=== PATIENT | female | born 1985 | race Caucasian/White ===

== ENCOUNTER → 2016-04-02 | Outpatient (CLI) | payer BC ==
--- NOTE | 2016-04-02 16:19 | XR ---
EXAMINATION TYPE: XR KUB DATE OF EXAM: 04/02/2016 4:01 PM COMPARISON: NONE HISTORY: Pain FINDINGS: The osseous structures are intact. The bowel gas pattern is nonspecific. Postsurgical change in the right upper quadrant. Retained fecal debris throughout the colon. Calcifications in the pelvis are no nspecific. Slightly irregular calculus within the right hemipelvis could potentially be within the right ureter measuring 3 mm. Arthropathy of the hip joints. IMPRESSION: 1. Nonspecific abdomen. Extensive retained fecal debris. 2. Possible 3 mm distal right ureteral calculus.
== END | disposition home or self-care (01) ==
LOC: RADXRMAIN 15:49
PROVIDERS: ATTEND Physician Assistant
DX: N20.1 Calculus of ureter (principal); R19.5 Other fecal abnormalities
CPT/HCPCS: 74000

== ENCOUNTER → 2019-05-15 | Outpatient (CLI) | payer BC ==
[2019-05-15 17:18] LABS: Basophils # (A) 0.1 k/uL (0-0.2); Basophils % (A) 1 %; Eosinophils # (A) 0.5 k/uL (0-0.7); Eosinophils % (A) 6 %; HCT 41.5 % (34.0-46.0); HGB 13.7 gm/dL (11.4-16.0); Lymphocytes # (A) 3.4 k/uL (1.0-4.8); Lymphocytes % (A) 36 %; MCH 31.3 pg (25.0-35.0); MCHC 32.9 g/dL (31.0-37.0); MCV 95.1 fL (80.0-100.0); Mean Platelet Volume 7.5; Monocytes # (A) 0.7 k/uL (0-1.0); Monocytes % (A) 7 %; Neutrophils # (A) 4.6 k/uL (1.3-7.7); Neutrophils % (A) 48 %; Platelet Count 326 k/uL (150-450); RBC 4.37 m/uL (3.80-5.40); RDW 12.4 % (11.5-15.5); WBC 9.5 k/uL (3.8-10.6)
[2019-05-15 23:42] LABS: African American GFR (CKD) 130.1 (60.0-200.0); Albumin 4.7 g/dL (3.80-4.90); Albumin/Globulin Ratio 2.35 (1.60-3.17); Anion Gap 5.9 mmol/L (4.00-12.00); BUN/Creat Ratio 12.86 Ratio (12.00-20.00); Calcium 10.1 mg/dL (8.7-10.3); Carbon Dioxide 30.1 mmol/L (21.6-31.8); Non-African American GFR(CKD) 112.3 (60.0-200.0); Potassium 3.9 mmol/L (3.5-5.5); Total Bilirubin 1.5 mg/dL (0.3-1.2); Total Protein 6.7 g/dL (6.2-8.2)
== END | disposition home or self-care (01) ==
LOC: LABWHC1 15:44
PROVIDERS: ATTEND Nurse Practitioner Family
DX: D72.829 Elevated white blood cell count, unspecified (principal); E83.52 Hypercalcemia
CPT/HCPCS: 36415; 80053; 85025

== ENCOUNTER → 2019-05-22 | Outpatient (CLI) | payer BC ==
--- NOTE | 2019-05-22 16:53 | US ---
EXAMINATION TYPE: US abdomen complete DATE OF EXAM: 05/22/2019 COMPARISON: NONE CLINICAL HISTORY: R74.8 Abnormal levels of other serum enzymes. EXAM MEASUREMENTS: Liver Length: Normal Gallbladder Wall: Surgically absent CBD: 0.6 cm Spleen: 8.2 cm Right Kidney: 9.9 x 3.2 x 4.5 cm Left Kidney: 9.0 x 4.6 x 4.3 cm Pancreas: wnl Liver: wnl Gallbladder: Surgically absent CBD: wnl Spleen: granulomas noted Right Kidney: No hydronephrosis or masses seen Left Kidney: No hydronephrosis or masses seen Upper IVC: wnl Abd Aorta: wnl IMPRESSION: Cholecystectomy. No dilated ducts. No renal mass or obstruction. No ascites.
--- NOTE | 2019-05-23 07:12 | US ---
EXAMINATION TYPE: US thyroid st tissue head/neck DATE OF EXAM: 05/22/2019 COMPARISON: US 2014 CLINICAL HISTORY: E04.1 SINGLE THYROID NODULE. GLAND SIZE: Right Lobe: 5.6 x 1.7 x 2.5 cm Overall Parenchyma: homogenous Left Lobe: 4.6 x 1.4 x 2.2 cm Overall Parenchyma: homogeneous Isthmus Thickness: 0.4 cm NODULES RIGHT: # of nodules measured on right: 1 1. 0.4 X 0.4 x 0.4 cm isoechoic solid nodule at the lower pole with well-defined margins; . This n odule is wider than tall and shows no intranodular vascularity. Prior size: not seen on prior There are a couple subcentimeter cystic areas measuring 3 mm each. LEFT: # of nodules measured on left: 0 ISTHMUS: # of nodules measured in the isthmus: 0 Bilateral neck scanned, no evidence of lymphadenopathy. IMPRESSION: Subcentimeter right thyroid nodules all measuring 4 mm or less are not seen on the prior examination. These are too small for fine-needle aspiration at this time. Follow-up ultrasound could be performed in 12 months to determine stability.
== END | disposition home or self-care (01) ==
LOC: RADUSWWP 15:22
PROVIDERS: ATTEND Family Medicine
DX: R74.8 Abnormal levels of other serum enzymes (principal); E04.1 Nontoxic single thyroid nodule; Z90.49 Acquired absence of other specified parts of digestive tract
CPT/HCPCS: 76536; 76700

== ENCOUNTER 2020-09-27 01:35 | Emergency (ER) | payer BC ==
[2020-09-27 01:40] VITALS: BP 124/83; PULSE 91; RESP 22; TEMP 97.6
[2020-09-27] MEDS ORDERED: HYDROmorphone 0.5 MG/0.5 ML SYRINGE IM STA ×2 (01:51→02:56)
--- NOTE | 2020-09-27 02:13 | XR ---
EXAMINATION TYPE: XR foot complete LT DATE OF EXAM: 09/27/2020 COMPARISON: 3 views HISTORY: Fall. Pain. Metatarsals are intact. I see no fracture nor dislocation. Toes are intact. IMPRESSION: Negative left foot exam. No fracture seen.
--- NOTE | 2020-09-27 02:16 | XR ---
EXAMINATION TYPE: XR ankle complete LT DATE OF EXAM: 09/27/2020 COMPARISON: NONE HISTORY: Pain TECHNIQUE: 3 views FINDINGS: There is nondisplaced oblique fracture distal fifth fibula. Ankle mortise is anatomic. Ther e is lateral soft tissue swelling. Joint spaces are normal. IMPRESSION: Acute oblique fracture distal fibula. No significant displacement.
--- NOTE | 2020-09-27 02:28 | ED ---
Lower Extremity Injury HPI - General Chief Complaint: Extremity Injury, Lower Stated Complaint: Left ankle injury Time Seen by Provider: 09/27/20 01:40 Source: patient Mode of arrival: wheelchair Limitations: no limitations - History of Present Illness Initial Comments: 35-year-old female presented emergency Department the chief complaint of ankle pain. Patient reports she was walking out to the bathroom, slipped and injured her left ankle. She reports falling on her ankle but denies any associated ecchymosis or erythema. Reports pain is exacerbated with any movement and alleviated at rest. She denies taking medications medication to alleviate the symptoms. Denies any paresthesias to the leg. Denies previous injuries to the region. - Related Data Home Medications Medication Instructions Recorded Confirmed ALPRAZolam [Xanax] 0.25 mg PO DAILY PRN 07/23/15 07/23/15 Albuterol Inhaler (Mhu) [Ventolin 2 puff INHALATION RT-Q6H PRN 07/23/15 07/23/15 Hfa Inhaler] Beclomethasone Dipropionate [Qvar 2 puff INHALATION RT-BID 07/23/15 07/23/15 80 mcg/puff] Clindamycin HCl 300 mg PO Q6H 07/23/15 07/23/15 Cyclobenzaprine [Flexeril] 10 mg PO TID PRN 07/23/15 07/23/15 Dextroamphetamine/Amphetamine 20 mg PO TID 07/23/15 07/23/15 [Adderall] Ergocalciferol [Vitamin D2] 50,000 unit PO Q48H 07/23/15 07/23/15 Ibuprofen [Motrin] 600 mg PO Q8HR PRN 07/23/15 07/23/15 traMADol HCL [Ultram] 50 mg PO Q6HR PRN 07/23/15 07/23/15 Allergies Allergy/AdvReac Type Severity Reaction Status Date / Time No Known Allergies Allergy Verified 09/27/20 01:39 Review of Systems ROS Statement: Those systems with pertinent positive or pertinent negative responses have been documented in the HPI. ROS Other: All systems not noted in ROS Statement are negative. Past Medical History Past Medical History: Asthma, Renal Disease Additional Past Medical History / Comment(s): chronic back and R shoulder pain, lactose intolerant, nephrolithiasis, R sided goiter. History of Any Multi-Drug Resistant Organisms: None Reported Past Surgical History: Adenoidectomy, Breast Surgery, Section, Cholecystectomy, Ear Surgery, Hysterectomy, Tonsillectomy, Tubal Ligation, Uterine Ablation Additional Past Surgical History / Comment(s): cyst removal from L eye, bilat eral myringotomy, multiple sx on a tailbone cyst, D&C, hysteroscopy, L breast cystectomy. Past Anesthesia/Blood Transfusion Reactions: No Reported Reaction Past Psychological History: ADD/ADHD Smoking Status: Current every day smoker Past Alcohol Use History: Occasional Past Drug Use History: None Reported - Past Family History Father Family Medical History: Hyperlipidemia, Hypertension Mother Additional Family Medical History / Comment(s): Goiter General Exam Limitations: no limitations General appearance: alert, in no apparent distress Head exam: Present: atraumatic, normocephalic, normal inspection Eye exam: Present: normal appearance, PERRL, EOMI Pupils: Present: normal accommodation ENT exam: Present: normal exam, normal oropharynx, mucous membranes moist Neck exam: Present: normal inspection, full ROM. Absent: tenderness Respiratory exam: Present: normal lung sounds bilaterally. Absent: respiratory distress Cardiovascular Exam: Present: regular rate, normal rhythm, normal heart sounds. Absent: systolic murmur Extremities exam: Present: normal inspection, full ROM, tenderness (Bilateral malleoli tenderness. No tenderness along the proximal tibia-fibula), normal capillary refill, joint swelling (Ankle), other (Sensation intact in both legs. Palpable DP and PT bilaterally). Absent: pedal edema Back exam: Present: normal inspection, full ROM. Absent: tenderness, CVA tenderness (R), CVA tenderness (L) Neurological exam: Present: alert, oriented X3 Psychiatric exam: Present: normal affect, normal mood Skin exam: Present: warm, dry, intact, normal color Course Vital Signs 09/27/20 01:37 Temperature 97.6 F Pulse Rate 91 Respiratory 22 Rate Blood Pressure 124/83 O2 Sat by Pulse 99 Oximetry Procedures - Orthopedic Splinting/Casting Injury #1 Side: left Lower Extremity Injury Location: ankle Lower Extremity Immobilizer: posterior splint, stirrup splint, Alin wrap, synthetic pre-padded splint Medical Decision Making - Medical Decision Making 35-year-old female presents to emergency Department with chief complaint of left ankle pain. On physical examination, she is neurovascularly intact but she has swelling on the left ankle. X-ray shows a distal fibular fracture. Patient was given Dilaudid for pain with some improvement of symptoms. She will be discharged with Tylenol 3 starter pack. I will apply posterior splint with ankle stirrup. Return parameters were thoroughly discussed patient is an attending ago. Case discussed with physician Disposition Clinical Impression: Fracture of distal end of fibula, Ankle fracture Disposition: HOME SELF-CARE Condition: Stable Instructions (If sedation given, give patient instructions): Ankle Fracture (DC) Additional Instructions: Follow with commercial collections specialist. Return to emergency department if symptoms worsen. Is patient prescribed a controlled substance at d/c from ED?: No Referrals: Austyn Prieto DO [Primary Care Provider] - 1-2 days Martha Steel DO [Doctor of Osteopathic Medicine] - 1-2 days Time of Disposition: 02:27
[2020-09-27] MEDS ORDERED: ACET/COD 300 MG/30 MG STARTER PACK 6 TAB BTL PO STA (02:45)
== END 2020-09-27 02:55 | disposition home or self-care (01) ==
LOC: EC 01:35
DX: S82.832A Other fracture of upper and lower end of left fibula, initial encounter for closed fracture (principal); S82.892A Other fracture of left lower leg, initial encounter for closed fracture; J45.909 Unspecified asthma, uncomplicated; F17.200 Nicotine dependence, unspecified, uncomplicated; Z79.51 Long term (current) use of inhaled steroids; Z79.899 Other long term (current) drug therapy; Z79.1 Long term (current) use of non-steroidal anti-inflammatories (NSAID); Z82.49 Family history of ischemic heart disease and other diseases of the circulatory system; W01.0XXA Fall on same level from slipping, tripping and stumbling without subsequent striking against object, initial encounter
CPT/HCPCS: 73610; 73630; 29515; 96372 ×2; 99284; J1170

== ENCOUNTER → 2020-10-22 | Outpatient (CLI) | payer BC ==
--- NOTE | 2020-10-23 10:55 | XR ---
EXAMINATION TYPE: XR tibia fibula LT DATE OF EXAM: 10/22/2020 COMPARISON: NONE HISTORY: Pain TECHNIQUE: Two views are submitted. FINDINGS: There is a displaced oblique fracture through the distal fibula. Findings also suspicious for subtle cortical step-off and posterior tibial fracture. Bone island within the distal tibia. IMPRESSION: 1. Acute oblique fracture through the distal fibula. 2. Findings also suspicious for subtle cortical step-off and posterior tibial fracture
== END | disposition home or self-care (01) ==
LOC: RADXRMAIN 14:49
PROVIDERS: ATTEND Nurse Practitioner Family
DX: S82.832A Other fracture of upper and lower end of left fibula, initial encounter for closed fracture (principal); X58.XXXA Exposure to other specified factors, initial encounter

== ENCOUNTER → 2021-02-25 | Outpatient (CLI) | payer BC ==
--- NOTE | 2021-02-25 19:36 | US ---
EXAMINATION TYPE: US thyroid st tissue head/neck DATE OF EXAM: 02/25/2021 COMPARISON: 05/22/2019 CLINICAL HISTORY: 35-year-old female E04.1 SINGLE THYROID NODULE. TECHNIQUE: Multiple sonographic images of the thyroid gland are obtained. FINDINGS: GLAND SIZE: Right Lobe: 5.5x2.6x2.1 cm Overall Parenchyma: homogenous Left Lobe: 4.5x2.4x1.7 cm Overall Parenchyma: homogeneous Isthmus Thickness: 0.5 cm NODULES RIGHT: # of nodules measured on right: 1 1. 0.4 X 0.4 x 0.4 cm, lower mid, solid or almost completely solid, hypoechoic nodule, which is wid er than tall, with smooth margins, without echogenic foci. Prior size: 0.4 x 0.4 x 0.4 cm 2. One small colloid cyst seen inf. LEFT: # of nodules measured on left: 0 ISTHMUS: # of nodules measured in the isthmus: 0 Bilateral neck scanned, no evidence of lymphadenopathy. IMPRESSION: 1. The right lobe of the thyroid gland is mildly enlarged. 2. There is a solitary tiny 4 mm solid nodule at the mid to lower right thyroid lobe which is unchang ed.
== END | disposition home or self-care (01) ==
LOC: RADUSWWP 14:55
PROVIDERS: ATTEND Family Medicine
DX: E04.1 Nontoxic single thyroid nodule (principal)
CPT/HCPCS: 76536

== ENCOUNTER → 2021-12-14 | Outpatient (CLI) | payer BC ==
--- NOTE | 2021-12-14 17:06 | US ---
EXAMINATION TYPE: US thyroid st tissue head/neck DATE OF EXAM: 12/14/2021 COMPARISON: CLINICAL HISTORY: E04.1 nontoxic single thyroid nodule. Follow up thyroid nodule. Patient states she feels a palpable superior to thyroid in right neck. GLAND SIZE: Right Lobe: 6.0 x 2.4 x 2.3 cm Overall Parenchyma: homogenous Left Lobe: 4.5 x 2.1 x 1.4 cm Overall Parenchyma: homogeneous Isthmus Thickness: 0.5 cm NODULES RIGHT: # of nodules measured on right: 1 1. 0.5 X 0.4 x 0.4 cm, lower mid, solid or almost completely solid, hypoechoic nodule, which is wid er than tall, with smooth margins, without echogenic foci. Prior size: 0.4 x 0.4 x 0.4 cm LEFT: # of nodules measured on left: 0 ISTHMUS: # of nodules measured in the isthmus: 0 Bilateral neck scanned, no evidence of lymphadenopathy. Area of concern scanned in right neck. Submandibular gland seen. Contralateral images taken. IMPRESSION: Previously identified thyroid nodule shows a stable appearance, follow-up is recommended in one year. The site of palpable abnormality does not show a discrete mass. 2017 ACR TI-RADS LEVEL: TR 4 *Highest TI-RADS level nodule reported
== END | disposition home or self-care (01) ==
LOC: RADUSWWP 16:12
PROVIDERS: ATTEND Family Medicine
DX: E04.1 Nontoxic single thyroid nodule (principal)
CPT/HCPCS: 76536

== ENCOUNTER 2022-03-15 11:38 | Day surgery (SDC) | payer BC ==
[2022-03-10 14:53] VITALS: BMI 27.2
[~2022-03-15 11:38] MED LIST: ACETAMINOPHEN TAB 500 MG TAB PO PRN; DEXAMETHASONE SOD PHOSPHATE 4 MG/ML 1 ML VIAL IV ONE; GLYCOPYRROLATE 0.2 MG/ML 2 ML VIAL ONE; HEPARIN SODIUM,PORCINE/PF 5,000 UNIT/0.5 ML SYRINGE SQ PRN; LACTATED RINGERS 1,000 ML IV SCH; LIDOCAINE 2% INJ 20 MG/ML (2 ML VIAL) ONE; MIDAZOLAM 2 MG/2 ML VIAL IV PRN; MIDAZOLAM 2 MG/2 ML VIAL ONE; NEOSTIGMINE 1 MG/ML 10 ML VIAL ONE; ONDANSETRON 4 MG/2 ML VIAL IVP ONE; PROPOFOL 10 MG/ML 20 ML VIAL IV ONE; ROCURONIUM 10 MG/ML (5 ML VIAL) IV ONE; SCOPOLAMINE 1 MG/72 HR PATCH TRANSDERM ONE; SUCCINYLCHOLINE CHLORIDE 200 MG/10 ML VIAL IV ONE; fentaNYL (PF) 50 MCG/ML 2 ML AMP ONE
--- NOTE | 2022-03-15 12:06 | P.GSHP ---
History of Present Illness H&P Date: 03/15/22 Chief Complaint: Incarcerated ventral hernia 36-year-old female seen in the office in January. Patient with a bulge above the umbilicus. Mild pain at times. Increasing in size. No previous scar there. Patient has almost quit smoking she says Past Medical History Past Medical History: Asthma, Thyroid Disorder Additional Past Medical History / Comment(s): H&P scanned. Chronic back and right shoulder pain, busitis in right shoulder. Lactose intolerant. Hx kidney stones. "Right sided goiter on liver or spleen." Eczema, Psoriasis. Thyroid nodules. History of Any Multi-Drug Resistant Organisms: None Reported Past Surgical History: Adenoidectomy, Breast Surgery, Section, Cholecystectomy, Ear Surgery, Hysterectomy, Tonsillectomy, Tubal Ligation, Uterine Ablation Additional Past Surgical History / Comment(s): Cyst removed from left eye, bilateral myringotomy, multiple surgeries on tailbone cyst, D&C, hysteroscopy, l eft breast cystectomy. Past Anesthesia/Blood Transfusion Reactions: No Reported Reaction Past Psychological History: ADD/ADHD Additional Psychological History / Comment(s): ADHD. Smoking Status: Current every day smoker Past Alcohol Use History: Occasional Additional Past Alcohol Use History / Comment(s): Started smoking at age 8, smokes less than a ppd. Past Drug Use History: None Reported - Past Family History Father Family Medical History: Deep Vein Thrombosis (DVT), Hyperlipidemia, Hypertension Mother Additional Family Medical History / Comment(s): Goiter. Medications and Allergies Home Medications Medication Instructions Recorded Confirmed Type Albuterol Inhaler [Ventolin Hfa 2 puff INHALATION Q6H PRN 07/23/15 03/15/22 History Inhaler] Cyclobenzaprine [Flexeril] 10 mg PO TID PRN 07/23/15 03/15/22 History Dextroamphetamine/Amphetamine 20 mg PO TID 07/23/15 03/15/22 History [Adderall] Cetirizine HCl [Zyrtec] 10 mg PO DAILY 03/10/22 03/15/22 History Cholecalciferol [Vitamin D3 (25 25 mcg PO DAILY 03/10/22 03/15/22 History Mcg = 1000 Iu)] Collagen Supplement 1 tab PO DAILY 03/10/22 03/15/22 History Folic Acid (Unknown Dose) 1 tab PO DAILY 03/10/22 03/15/22 History Allergies Allergy/AdvReac Type Severity Reaction Status Date / Time varenicline [From Chantix] Allergy Rash/Hives Verified 03/15/22 11:54 lactose AdvReac Lactose Verified 03/15/22 11:54 Intolerant Surgical - Exam Vital Signs Temp Pulse Resp BP Pulse Ox 96.9 F L 86 18 114/71 100 03/15/22 11:53 03/15/22 11:53 03/15/22 11:53 03/15/22 11:53 03/15/22 11:53 Physical exam: General: Well-developed, well-nourished HEENT: Normocephalic, sclerae nonicteric Abdomen: Nontender, nondistended, incarcerated ventral hernia fascial defect unable to palpate Extremities: No edema Neuro: Alert and oriented Assessment and Plan (1) Incarcerated ventral hernia Narrative/Plan: 36-year-old female with incarcerated ventral hernia. We'll proceed with open repair incarcerated ventral hernia with possible mesh. Risks of bleeding, infection, recurrence, bladder and bowel injury, numbness, nerve injury were discussed with the patient. The patient understands and wishes to proceed. Current Visit: Yes Status: Acute Code(s): K43.6 - OTHER AND UNSP VENTRAL HERNIA WITH OBSTRUCTION, W/O GANGRENE SNOMED Code(s): 125049527
[2022-03-15] MEDS ORDERED: BUPIVACAIN-EPI 0.25%-1:200,000 30 ML VIAL SQ ONE ×2 (12:29→13:12)
--- NOTE | 2022-03-15 13:22 | P.OP ---
Date of Procedure: 03/15/22 Procedure(s) Performed: PREOPERATIVE DIAGNOSIS: Incarcerated ventral hernia POSTOPERATIVE DIAGNOSIS: Same PROCEDURE: Open repair incarcerated ventral hernia with mesh SURGEON: Dr. Francis ANESTHESIA: General OPERATIVE PROCEDURE DETAILS: Patient placed on the operating table in the supine position. Abdomen was prepped and draped in usual sterile fashion. A vertical incision was then made superior to the umbilicus by approximately 2 cm. This took placed just superior to the upper belly button ring skin opening. Dissection through the subcutaneous tissues took place using electrocautery. The patient had a a single defect in the fascia. The amount of fatty tissue coming through this defect was fairly impressive with a specimen size of 5 x 3 cm. The defect in the fascia however was a circular 1.8 x 1.8 cm defect. No additional holes in the fascia were seen. The preperitoneal space was dissected using blunt dissection and cautery. The 4.3 cm ventral ex mesh was placed in the preperitoneal space and sutured to the fascia using trans-fascial 0 Ethibond sutures. Following that the midline fascia was reapproximated using interrupted 0 Ethibond mattress sutures. The subcutaneous tissues were closed using 3-0 Vicryl sutures. The skin was closed using a running 4-0 Monocryl suture. Skin glue and sterile dressings were applied. HERNIA CHARACTERISTICS: Length: 1.8 cm Width: 1.8 cm Type: Incarcerated ventral TYPE OF MESH USED: 4.3 cm ventral ex LOCATION OF MESH: Sub-lay preperitoneal FIXATION: Trans-fascial 0 Ethibond PREOPERATIVE DISCUSSION ON SMOKING CESSASTION: Yes PREOPERATIVE DISCUSSION ON MORBID OBESITY: Yes PREOPERATIVE DISCUSSION ON APPROPRIATE USE OF NARCOTIC USE: Yes PREOPERATIVE EDUCATION: Multi Modal, Smoking Cessation and Weight Loss with BMI over 35. DISPOSITION: Stable to recovery room
[2022-03-15] MEDS ORDERED: ACETAMINOPHEN TAB 325 MG TAB PO SCH (13:30)
[2022-03-15 13:37] VITALS: TEMP 96.8
[2022-03-15] MEDS: HYDROmorphone 0.5 MG/0.5 ML SYRINGE IVP PRN ×3 (13:49→14:08)
[2022-03-15 14:05] VITALS: RESP 16
[2022-03-15 15:36] VITALS: BP 107/60; PULSE 75
[2022-03-15] MEDS ORDERED: IBUPROFEN 600 MG TAB PO SCH (16:30)
== END 2022-03-15 15:36 | disposition home or self-care (01) ==
LOC: OR 11:38
PROVIDERS: ATTEND Surgery
DX: K43.6 Other and unspecified ventral hernia with obstruction, without gangrene (principal); J45.909 Unspecified asthma, uncomplicated; E07.9 Disorder of thyroid, unspecified; F17.210 Nicotine dependence, cigarettes, uncomplicated; F90.9 Attention-deficit hyperactivity disorder, unspecified type; Z82.49 Family history of ischemic heart disease and other diseases of the circulatory system; Z83.49 Family history of other endocrine, nutritional and metabolic diseases; Z87.442 Personal history of urinary calculi; Z90.49 Acquired absence of other specified parts of digestive tract; Z79.51 Long term (current) use of inhaled steroids; Z79.899 Other long term (current) drug therapy; Z88.9 Allergy status to unspecified drugs, medicaments and biological substances; Z91.011 Allergy to milk products
CPT/HCPCS: 49592; J1100; J0690; J2405; J1170; J1644; 88302

== ENCOUNTER → 2023-03-25 | Outpatient (CLI) | payer BC ==
--- NOTE | 2023-03-25 09:05 | XR ---
EXAMINATION TYPE: XR scoliosis survey DATE OF EXAM: 03/25/2023 COMPARISON: NONE HISTORY: Scoliosis TECHNIQUE: 4 views FINDINGS: There is a scoliotic curvature of the spine measuring 10 degrees. Pedicles are intact. Vert ebral body height and disc spaces fairly well preserved with mild hypertrophic changes. No compressio n deformities. The lung almonte are clear. Surgical clips in the right upper quadrant compatible with previous cholecystectomy IMPRESSION: Approximate 10 degree scoliosis.
[2023-03-25 11:46] LABS: Basophils # (A) 0.07 X 10*3/uL (0.00-0.10); Basophils % (A) 0.8 %; Eosinophils # (A) 0.65 X 10*3/uL (0.04-0.35); Eosinophils % (A) 7.1 %; HCT 43.7 % (37.2-46.3); HGB 14.4 g/dL (12.0-15.0); Lymphocytes % (A) 33.7 %; MCH 31.4 pg (27.0-32.0); MCV 95.2 FL (80.0-97.0); Mean Platelet Volume 9.2 FL (9.5-12.2); Monocytes # (A) 0.88 X 10*3/uL (0.20-1.00); Monocytes % (A) 9.6 %; NRBC Per 100 WBC 0 X 10*3/uL (0.00-0.01); Neutrophils # (A) 4.46 X 10*3/uL (1.80-7.70); Neutrophils % (A) 48.5 %; Platelet Count 372 X 10*3/uL (140-440); RBC 4.59 X 10*6/uL (4.10-5.20); RDW 12.8 % (11.5-14.5); WBC 9.19 X 10*3/uL (4.50-10.00)
[2023-03-25 15:03] LABS: ALT 19 U/L (8-44); AST 19 U/L (13-35); Albumin 4.8 g/dL (3.8-4.9); Alkaline Phosphatase 98 U/L (41-126); BUN/Creat Ratio 18.88 Ratio (12.00-20.00); Blood Urea Nitrogen 15.1 mg/dL (9.0-27.0); Calcium 10.9 mg/dL (8.7-10.3); Carbon Dioxide 26.9 mmol/L (21.6-31.8); Chloride 103 mmol/L (96-109); Chol/HDL Ratio 3.15 Ratio; Globulin 2.4 g/dL (1.6-3.3); Glucose 93 mg/dL (70-110); LDL Cholesterol,Calculated 121.9 mg/dL (0.0-131.0); Magnesium 2.1 mg/dL (1.5-2.4); Potassium 4.5 mmol/L (3.5-5.5); Sodium 141 mmol/L (135-145); T4, Free (Free Thyroxine) 1.38 ng/dL (0.80-1.80); Total Protein 7.2 g/dL (6.2-8.2)
== END | disposition home or self-care (01) ==
LOC: LABWHC1 08:08
PROVIDERS: ATTEND Family Medicine
DX: M41.9 Scoliosis, unspecified (principal); E04.9 Nontoxic goiter, unspecified; E55.9 Vitamin D deficiency, unspecified; Z83.49 Family history of other endocrine, nutritional and metabolic diseases
CPT/HCPCS: 36415; 72082; 80053; 80061; 82306; 83735; 83970; 84439; 84443; 84445; 84481; 85025; 86800

== ENCOUNTER → 2023-03-31 | Outpatient (CLI) | payer BC ==
--- NOTE | 2023-03-31 20:20 | MM ---
Reason for Exam: Screening (asymptomatic). Last mammogram was performed 11 year(s) and 9 month(s) ago. Patient History: Menarche at age 10. First Full-Term at age 18. Hysterectomy at age 26. Patient used Hormonal Contraceptives for 6 years. Benign Excisional Biopsy on the left side. Paternal grandmother had breast cancer. Maternal aunt had breast cancer. Risk Values: Shila 5 year model risk: 0.6%. NCI Lifetime model risk: 9.9%. Prior Study Comparison: No prior studies available for comparison. Tissue Density: The breast tissue is heterogeneously dense. This may lower the sensitivity of mammography. Findings: Analyzed By CAD. Prominent grouped and regional calcifications laterally in the right breast and in the upper outer quadrant of the left breast. Further magnification views are recommended. Otherwise, no discrete abnormality is seen. Overall Assessment: Incomplete: need additional imaging evaluation, BI-RAD 0 Management: Special View Mammogram of both breasts. . [facility] will attempt to contact patient to return for supplemental views and ultrasound if indicated. Electronically signed and approved by: Aiden Burton M.D. Radiologist
== END | disposition home or self-care (01) ==
LOC: RADMAMWWP 07:00
PROVIDERS: ATTEND Family Medicine
DX: Z12.39 Encounter for other screening for malignant neoplasm of breast (principal); Z80.3 Family history of malignant neoplasm of breast
CPT/HCPCS: 77067

== ENCOUNTER → 2023-03-31 | Outpatient (CLI) | payer BC ==
--- NOTE | 2023-03-31 15:10 | US ---
EXAMINATION TYPE: US thyroid st tissue head/neck DATE OF EXAM: 03/31/2023 COMPARISON: 12/14/2021 CLINICAL INDICATION: Female, 37 years old with history of E04.9 NONTOXIC GOITER, UNSPECIFIED; thy nod ule GLAND SIZE: Right Lobe: 5.5 x 2.6 x 1.7 cm Overall Parenchyma: homogeneous Left Lobe: 4.7 x 1.5 x 2.2 cm Overall Parenchyma: homogeneous Isthmus Thickness: .4 cm NODULES RIGHT: # of nodules measured on right: 0. Nodule seen on previous not well defined on today's study . LEFT: # of nodules measured on left: 0 ISTHMUS: # of nodules measured in the isthmus: .4 Bilateral neck scanned, no evidence of lymphadenopathy. IMPRESSION: Borderline to mild thyromegaly. The vague nodule previously seen in the right lobe is not identified on the current exam.
== END | disposition home or self-care (01) ==
LOC: RADUSWWP 12:56
PROVIDERS: ATTEND Family Medicine
DX: E01.0 Iodine-deficiency related diffuse (endemic) goiter (principal)
CPT/HCPCS: 76536

== ENCOUNTER → 2023-04-08 | Outpatient (CLI) | payer BC ==
--- NOTE | 2023-04-08 08:27 | MM ---
Reason for Exam: Additional evaluation requested from abnormal screening. Last screening mammogram was performed less than 1 month ago. Patient History: Menarche at age 10. First Full-Term at age 18. Hysterectomy at age 26. Patient used Hormonal Contraceptives for 6 years. Benign Excisional Biopsy on the left side. Paternal grandmother had breast cancer. Maternal aunt had breast cancer. Risk Values: Shila 5 year model risk: 0.6%. NCI Lifetime model risk: 9.9%. Prior Study Comparison: 06/15/2011 Bilateral Diagnostic Mammogram, [facility]. 03/31/2023 Bilateral MG screening mammo w CAD, [facility]. Tissue Density: The breast tissue is heterogeneously dense. This may lower the sensitivity of mammography. Findings: Analyzed By CAD. Layering calcifications are seen diffusely and bilaterally compatible with milk of calcium. No suspicious clusters are evident. Overall Assessment: Benign, BI-RAD 2 Management: Screening Mammogram of both breasts at age 39. . Results were given to the patient verbally at the time of exam. Patient should continue monthly self-breast exams. A clinical breast exam by your physician is recommended on an annual basis. This exam should not preclude additional follow-up of suspicious palpable abnormalities. Note on Shila scores and lifetime risk: 1. A Shila score greater than 3% is considered moderate risk. If this is the case, consider specialist referral to assess eligibility for a risk reducing agent. 2. If overall lifetime risk for the development of breast cancer is 20% or higher, the patient may qualify for future screening with alternating mammogram and breast MRI. Electronically signed and approved by: Robbie Polanco M.D. Radiologis
== END | disposition home or self-care (01) ==
LOC: RADMAMWWP 07:48
PROVIDERS: ATTEND Family Medicine
DX: R92.333 Mammographic heterogeneous density, bilateral breasts (principal); Z80.3 Family history of malignant neoplasm of breast
CPT/HCPCS: 77062; 77066

== ENCOUNTER → 2024-09-26 | Outpatient (CLI) | payer BC ==
--- NOTE | 2024-09-26 14:29 | CT ---
EXAMINATION TYPE: CT soft tissue neck w con CT DLP: 360.5 mGycm, Automated exposure control for dose reduction was used. DATE OF EXAM: 09/26/2024 1:49 PM COMPARISON: Multiple thyroid ultrasound with most recent 03/31/2023. CLINICAL INDICATION:Female, 39 years old with history of R59.0 LOCALIZED ENLARGED LYMPH NODES; PHH, e nlarged lymph nodes TECHNIQUE: Standard enhanced CT of the neck following intravenous administration of 100 cc of Isovue 300. Axial sections with coronal and sagittal reformats were obtained. FINDINGS: Brain: Visualized portions are grossly unremarkable. Orbits: Unremarkable Sinuses: Minimal mucosal thickening of the left maxillary sinus, right sphenoid sinus, and ethmoid si nuses. Suprahyoid Neck: Tongue ornamentation demonstrated. The oropharynx, oral cavity, parapharyngeal and r etropharyngeal spaces are clear and symmetric. The nasopharynx is unremarkable. Infrahyoid Neck: The larynx, hypopharynx, and supraglottic area are clear and symmetric. Parotid Glands: Unremarkable. Submandibular Glands: Unremarkable. Musculoskeletal: No acute osseous pathology. Mild degenerative disc disease C6-C7 with anterior osteo phytosis. Lymph nodes: No enlarged lymph nodes greater than 1 cm short axis identified. No enlarged lymph nod es at palpable markers. Vascular structures: Visualized major arteries are patent without evidence of aneurysm. Thoracic Inlet/airway: Airway is patent. The lung apices are clear. Soft tissues/Thyroid: Thyromegaly without discrete nodule identified. Right thyroid lobe is larger th an the right. Right thyroid lobe measures grossly 2.8 x 2.2 x 5.3 cm in AP, TV, CC dimension. The lef t thyroid lobe measures grossly 2.4 x 1.9 x 4.4 cm in AP, TV, CC dimension. Nasal ornamentation. The remainder the soft tissues are unremarkable. Other: none. IMPRESSION: 1. No suspicious lymphadenopathy. 2. Thyromegaly. [facility], , 09/26/2024 2:27 PM
== END | disposition home or self-care (01) ==
LOC: RADCTMAIN 13:15
PROVIDERS: ATTEND Family Medicine
DX: E07.89 Other specified disorders of thyroid (principal); R59.0 Localized enlarged lymph nodes
CPT/HCPCS: 70491; Q9967